=== PATIENT | female | born 1970 | race Caucasian/White ===

== ENCOUNTER 2019-11-06 06:58 | Outpatient (RCR) | payer BC | END 2019-11-10 | LOC: PT 06:58 | PROVIDERS: ATTEND Otolaryngology | DX: H81.311 Aural vertigo, right ear (principal) ==

== ENCOUNTER 2019-11-27 06:58 | Outpatient (RCR) | payer BC | END 2019-12-10 | LOC: PT 06:58 | PROVIDERS: ATTEND Otolaryngology | DX: H81.311 Aural vertigo, right ear (principal) | CPT/HCPCS: 97139 ==